=== PATIENT | male | born 1985 | race Caucasian/White ===

== ENCOUNTER 2018-09-08 18:01 | Emergency (ER) | payer OTHER ==
[2018-09-08] MEDS ORDERED: IBUPROFEN 400 MG TABLET PO ONE (18:13)
[2018-09-08] MEDS ORDERED: DIAZEPAM 5 MG TABLET PO ONE (18:13)
--- NOTE | 2018-09-08 18:19 | Emergency Department Record ---
History of Present Illness - General Stated Complaint: BACK PAIN Time Seen by Provider: 09/08/18 18:06 Source: Patient Mode of Arrival: Ambulatory Limitations: No limitations - History of Present Illness Initial Comments: 33 yo male presents to ED of evaluation of mid-back pain symptoms that began this morning upon awakening. Patient reports that he slept on an air mattress that deflated overnight, woke up in with pain symptoms this morning. Patient reports pain with ROM/position changes. Patient denies specific injury or trauma, denies fevers, chills, or urinary symptoms. Patient denies history of kidney stones. Patient did take Aleve x1 today that did not help significantly. MD Complaint: Back pain Onset/Timin -: Days(s) Similar Symptoms Previously: No Place: Home Radiation: None Severity: Moderate Quality: Other (Spasming) Consistency: Intermittent Improves With: Immobilization Worsens With: Movement Context: Other Associated Symptoms: Denies other symptoms Treatments Prior to Arrival: NSAIDS - Related Data Previous Rx's Medication Instructions Recorded Diazepam [Valium] 5 mg PO Q8H PRN #10 tab 09/08/18 Ibuprofen [Motrin] 800 mg PO Q6H PRN #30 tab 09/08/18 Allergies Allergy/AdvReac Type Severity Reaction Status Date / Time No Known Drug Allergies Allergy Verified 09/08/18 18:20 Review of Systems Constitutional: Denies: Chills, Fever, Malaise, Night sweats Eyes: Denies: Eye discharge, Eye pain ENT: Denies: Congestion, Ear pain, Epistaxis Respiratory: Denies: Cough, Dyspnea Cardiovascular: Denies: Chest pain, Dyspnea on exertion Endocrine: Denies: Fatigue, Heat or cold intolerance Gastrointestinal: Denies: Abdominal pain, Nausea, Vomiting Genitourinary: Denies: Incontinence, Retention Musculoskeletal: Reports: Back pain. Denies: Arthralgia, Gout, Joint swelling Skin: Denies: Bruising, Change in color Neurological: Denies: Abnormal gait, Confusion, Headache, Tingling, Tremors Psychiatric: Denies: Anxiety Hematological/Lymphatic: Denies: Anemia, Blood Clots Physical Exam - General General Appearance: Alert, Oriented x3, Cooperative, Moderate distress Limitations: No limitations - Head Head exam: Atraumatic, Normocephalic, Normal inspection Head exam detail: negative: Abrasion, Contusion, Pereira's sign, General tenderness, Hematoma, Laceration - Eye Eye exam: Normal appearance. negative: Conjunctival injection, Periorbital swelling, Periorbital tenderness, Scleral icterus - ENT Ear exam: negative: Auricular hematoma, Auricular trauma Nasal Exam: negative: Active bleeding, Discharge, Dried blood, Foreign body Mouth exam: negative: Drooling, Laceration, Muffled voice, Tongue elevation - Neck Neck exam: Normal inspection. negative: Meningismus, Tenderness - Respiratory Respiratory exam: Normal lung sounds bilaterally. negative: Respiratory distress, Rhonchi, Stridor, Wheezes - Cardiovascular Cardiovascular Exam: Regular rate, Normal rhythm, Normal heart sounds - GI/Abdominal GI/Abdominal exam: Soft. negative: Rebound, Rigid, Tenderness - Rectal Rectal exam: Deferred - exam: Deferred - Extremities Extremities exam: negative: Calf tenderness, Pedal edema, Tenderness - Back Back exam: Reports: Paraspinal tenderness (Mid thoracic spine paravertebral TTP). Denies: CVA tenderness (R), CVA tenderness (L) - Neurological Neurological exam: Alert, Normal gait, Oriented X3 - Psychiatric Psychiatric exam: Normal affect, Normal mood - Skin Skin exam: Normal color. negative: Abrasion Type of lesion: negative: abrasion Course - Reevaluation(s) Reevaluation #1: 09/08/18 18:53 Thoracic spine: Mild dextroscoliosis right No acute process identified Patient was update on his radiograph results, symptoms appear c/w myofascial paravertebral muscle strain. Will treat with Motrin 800 mg and Valium as needed. Patient verbalizes understanding of all instructions and appears stable for discharge at this time. Disposition Disposition: Discharge Clinical Impression: Spasm of thoracic back muscle Disposition: Home, Self-Care Condition: (2) Stable Instructions: Muscle Spasm (ED) Additional Instructions: Return to ED if your symptoms worsen or if you have any concerns. Valium and Motrin as directed. Follow-up with your family doctor in 3-5 days as directed. Prescriptions: Ibuprofen [Motrin] 800 mg PO Q6H PRN #30 tab PRN Reason: Pain - Mild To Moderate (1-7) Diazepam [Valium] 5 mg PO Q8H PRN #10 tab PRN Reason: Pain - Mod To Severe (5-10) Time of Disposition: 18:56 Quality - Quality Measures Quality Measures: N/A - Blood Pressure Screening Does Patient Have Any of the Following: No Blood Pressure Classification: Normal BP Reading Systolic Measurement: 102 Diastolic Measurement: 62 Screening for High Blood Pressure: < Normal BP, F/U Not Required > [G8712]
--- NOTE | 2018-09-09 13:36 | RADIOLOGY REPORT ---
EXAM: THORACIC SPINE HISTORY: BACK PAIN. TECHNIQUE: Three views of the thoracic spine were obtained. FINDINGS: There is minimal mid thoracic scoliosis. No fractures are seen. There is no evidence of erosive or destructive process. IMPRESSION: NEGATIVE THORACIC SPINE EXAMINATION. JOB NUMBER: [id number] MTDD
== END 2018-09-08 19:17 | disposition home or self-care (01) ==
LOC: ER 18:01
DX: S29.012A Strain of muscle and tendon of back wall of thorax, initial encounter (principal); M62.830 Muscle spasm of back; X50.0XXA Overexertion from strenuous movement or load, initial encounter; Y92.009 Unspecified place in unspecified non-institutional (private) residence as the place of occurrence of the external cause
CPT/HCPCS: 72072; 99283